=== PATIENT | female | born 1960 | race Caucasian/White ===

== ENCOUNTER → 2019-08-27 | Outpatient (CLI) | payer OTHER ==
--- NOTE | 2019-08-27 20:56 | EKG REPORT ---
SEVERITY:- BORDERLINE ECG - SINUS RHYTHM PROBABLE LEFT ATRIAL ABNORMALITY : Confirmed by: Omi Barlow 27-Aug-2019 20:55:16
== END ==
LOC: OD 15:56
PROVIDERS: ATTEND Nurse Practitioner Acute Care
DX: I10 Essential (primary) hypertension (principal)
CPT/HCPCS: 93005; 93010

== ENCOUNTER 2020-03-06 08:03 | Day surgery (SDC) | payer OTHER ==
--- NOTE | 2020-03-03 09:25 | RADIOLOGY REPORT (SQ) ---
EXAM DESCRIPTION: CHEST PA/LATERAL IMAGES COMPLETED DATE/TIME: 03/03/2020 9:17 am REASON FOR STUDY: PRE-OP COMPARISON: None. EXAM PARAMETERS: NUMBER OF VIEWS: two views TECHNIQUE: Digital Frontal and Lateral radiographic views of the chest acquired. RADIATION DOSE: NA LIMITATIONS: none FINDINGS: LUNGS AND PLEURA: No opacities, masses or pneumothorax. No pleural effusion. MEDIASTINUM AND HILAR STRUCTURES: No masses or contour abnormalities. HEART AND VASCULAR STRUCTURES: Heart normal size. No evidence for failure. BONES: No acute findings. HARDWARE: None in the chest. OTHER: No other significant finding. IMPRESSION: NO SIGNIFICANT RADIOGRAPHIC FINDING IN THE CHEST. TECHNICAL DOCUMENTATION: JOB ID: [id number] 2010 [employer]- All Rights Reserved Reading location - IP/workstation name: [email or web address]
[2020-03-03 09:37] LABS: HEMATOCRIT 47.8 % (36.0-47.0); HEMOGLOBIN 16.4 g/dL (12.0-15.5); MEAN CORPUSCULAR HEMOGLOBIN 31.4 pg (27.0-33.4); MEAN CORPUSCULAR HGB CONC 34.3 g/dL (32.0-36.0); MEAN CORPUSCULAR VOLUME 92 fl (80-97); PLATELET COUNT 222 10^3/uL (150-450); RED BLOOD COUNT 5.21 10^6/uL (3.72-5.28); RED CELL DISTRIBUTION WIDTH 13.8 % (11.5-14.0)
[2020-03-03 09:55] LABS: ANION GAP 6 (5-19); BLOOD UREA NITROGEN 19 mg/dL (7-20); CALCIUM 9.8 mg/dL (8.4-10.2); CARBON DIOXIDE 30 mmol/L (22-30); CHLORIDE 103 mmol/L (98-107); GLUCOSE 110 mg/dL (75-110); POTASSIUM 4.6 mmol/L (3.6-5.0)
--- NOTE | 2020-03-03 12:59 | EKG REPORT ---
SEVERITY:- BORDERLINE ECG - SINUS BRADYCARDIA PROBABLE LEFT ATRIAL ABNORMALITY : Confirmed by: Samson Chaney MD 03-Mar-2020 12:58:38
[~2020-03-06 08:03] MED LIST: ACETAMINOPHEN 325 MG TABLET PO PRN; CEFAZOLIN 2 GM/D5W RTU 2 GM/50 ML RTUPB IV PRN; IBUPROFEN 800 MG in NORMAL SALINE 250 ML IV PRN; LIDOCAINE 0.5% INJ-PF (5 MG/ML) 50 ML SDV SUBCUT PRN; RINGERS SOLUTION,LACTATED 1,000 ML IV PRN
[2020-03-06] MEDS ORDERED: ACETAMINOPHEN 325 MG TABLET ONE (08:28)
[2020-03-06] MEDS ORDERED: CEFAZOLIN 2 GM/D5W RTU 2 GM/50 ML RTUPB IV ONE (08:28)
[2020-03-06] MEDS ORDERED: MIDAZOLAM 2 MG/2 ML INJ ONE (08:39)
[2020-03-06] MEDS ORDERED: FENTANYL CITRATE INJ/PF 100 MCG/2 ML AMPUL ONE (08:39)
[2020-03-06] MEDS ORDERED: PROPOFOL INJ 200 MG/20 ML VIAL IV ONE (08:39)
[2020-03-06] MEDS ORDERED: ONDANSETRON HCL INJ/PF 4 MG/2 ML SDV ONE (08:39)
[2020-03-06] MEDS ORDERED: KETOROLAC TROMETHAMINE 60 MG/2 ML SDV ONE (08:39)
[2020-03-06] MEDS ORDERED: SCOPOLAMINE HYDROBROMIDE 1.5 MG PATCH.TD72 ONE (09:00)
[2020-03-06] MEDS ORDERED: BUPIVACAINE HCL 0.25 % INJ/PF (2.5 MG/1 ML) 30 ML VIAL ONE (09:54)
[2020-03-06] MEDS ORDERED: LIDOCAINE 1% INJ-PF (10 MG/ML) 30 ML SDV ONE (09:54)
[2020-03-06] MEDS ORDERED: SCOPOLAMINE HYDROBROMIDE 1.5 MG PATCH.TD72 TD ONE (10:00)
[2020-03-06] MEDS ORDERED: ONDANSETRON HCL INJ/PF 4 MG/2 ML SDV IV PRN (10:14)
[2020-03-06] MEDS ORDERED: FENTANYL CITRATE INJ/PF 100 MCG/2 ML AMPUL IV PRN ×3 (10:14)
[2020-03-06] MEDS ORDERED: DIPHENHYDRAMINE HCL 50 MG/ML VIAL IV PRN (10:14)
[2020-03-06] MEDS ORDERED: PROMETHAZINE HCL INJ 25 MG/1 ML VIAL IV PRN (10:14)
--- NOTE | 2020-03-06 10:49 | Discharge Summary ---
Discharge Summary (SDC) - Discharge Final Diagnosis: Abdominal wall lipomas Date of Surgery: 03/06/20 Discharge Date: 03/06/20 Condition: Stable Treatment or Instructions: Discharge home. Diet as tolerated. Activity: Nonstrenuous. Follow-up with [facility] in 7 to 10 days. Ibuprofen 800 mg p.o. every 8 hours as needed for pain. [id number]-[id number] Tylenol for breakthrough pain. Okay to shower starting Friday. Prescriptions: Ibuprofen [Motrin 800 mg Tablet] 800 mg PO Q8HP PRN #30 tab PRN Reason: For Pain Referrals: ISAIAH MAURICIO NP [Primary Care Provider] - Discharge Diet: As Tolerated Respiratory Treatments at Home: Deep Breathing/Coughing, Incentive Spirometer Discharge Activity: Activity As Tolerated, Balance Activity w/Rest Home Care Assistance: None Needed Report the Following to Your Physician Immediately: Shortness of Breath, Nausea, Vomiting, Increase in Pain, Fever over 101 Degrees, Unusual Bleeding, Redness, Swelling, Warmth
--- NOTE | 2020-03-06 12:01 | Operative Report ---
Nonrecallable Operative Report DATE OF SURGERY: 03/06/20 PREOPERATIVE DIAGNOSIS: abdominal wall lipoma x2 POSTOPERATIVE DIAGNOSIS: same as above OPERATION: 1. 3.5 cm LUQ lipoma excision. 2. 3 cm LUQ incision intermediate closure. 3. 5 cm RUQ lipoma excision. 4. 5 cm RUQ incision intermediate closure SURGEON: PABLITO CROWE 1ST OVERHAULER: PUJA BLANCHARD ANESTHESIA: LMAC TISSUE REMOVED OR ALTERED: 1. 3.5 cm LUQ lipoma. 2. 5 cm RLQ lipoma COMPLICATIONS: none apparent ESTIMATED BLOOD LOSS: minimal PROCEDURE: Procedure in-detail: After informed consent was obtained, the patient was brought into the operating room and laid in the supine position. The area of the abdomen was prepped and draped in a normal sterile fashion. The left upper quadrant lipoma was identified via palpation. An incision was created over the lipoma. The lipoma was excised from the subcutaneous tissues using sharp dissection and electrocautery. Hemostasis was achieved to the use of Bovie electrocautery. The subcutaneous tissues were then closed using 3-0 Vicryl suture in simple running fashion. The overlying skin was closed in 4-0 Vicryl Rapide suture in subcuticular fashion. The lipoma was measured to be 3.5 cm in total diameter. The incision was measured to be 3 cm in length. Attention was then turned to the right lower quadrant lipoma. An incision was created over the lipoma. The incision was 5 cm in length. The lipoma was excised from the subcutaneous tissues using sharp dissection, blunt dissection, and electrocautery. The lipoma was measured to be 5 cm in total diameter. Once the lipoma was completely removed, hemostasis was achieved using electrocautery. The subcutaneous tissues were closed using 3-0 Vicryl suture in simple running fashion. The overlying skin was closed in 4-0 Vicryl Rapide suture in subcuticular fashion. Dressings were then placed, and the procedure was concluded. All sponge, instrument, and needle counts were correct x2. Condition: Stable. Puja Blanchard PA-C was scrubbed and present the entirety of the procedure. She assisted with all portions of the procedure including removal of the lipoma, closure of the subcutaneous tissue, and closure of the skin.
[2020-03-06 12:26] VITALS: BP 164/89
== END 2020-03-06 12:10 | disposition home or self-care (01) ==
LOC: OROUT 08:03
PROVIDERS: ATTEND Surgery
DX: D17.1 Benign lipomatous neoplasm of skin and subcutaneous tissue of trunk (principal); Z03.818 Encounter for observation for suspected exposure to other biological agents ruled out; I10 Essential (primary) hypertension
CPT/HCPCS: 93005; 36415; 85027; 87635; 80048; 88304 ×2; 71046; 93010; 22903; J3490; J2405; J7050; J2704; J0690; J1741; C9803; J1885; J2250; J3010